=== PATIENT | female | born 1980 | race Caucasian/White ===

== ENCOUNTER 2018-07-15 08:23 | Emergency (ER) | payer MEDICAID ==
[~2018-07-15] VITALS: Ht 167.6 cm; Wt 70.1 kg
[2018-07-15 08:32] VITALS: BP 116/56; PULSE 77; RESP 20; Ht 167.6 cm; Wt 70.1 kg
--- NOTE | 2018-07-15 11:08 | ERD ---
ER Documentation Chief Complaint Chief Complaint Complains of vag bleed and HPI 38-year-old female presenting with complaints of vaginal bleeding. Patient is approximately 11 weeks . being seen by Dr. Marcy Hendrix at [facility]. Patient has no clots but has some mild pressure within the vaginal region. Medical history denies. NKDA. Surgical history is hernia repair years ago. Social history denies ROS All systems reviewed and are negative except as per history of present illness. PMhx/Soc Medical and Surgical Hx: pt denies Medical Hx, pt denies Surgical Hx Hx Alcohol Use: No Hx Substance Use: No Hx Tobacco Use: No Smoking Status: Never smoker FmHx Family History: No diabetes, No coronary disease, No other Physical Exam Vitals Vital Signs Date Temp Pulse Resp B/P (MAP) Pulse Ox O2 O2 Flow FiO2 Time Delivery Rate 07/15/18 98.6 77 20 116/56 100 08:32 (76) Physical Exam GENERAL: The patient is well-appearing, well-nourished, in no acute distress HEENT: Atraumatic. Conjunctivae are pink. Pupils equal, round, and reactive to light. There is no scleral icterus. Tympanic membranes clear bilaterally. Oropharynx clear. No nystagmus or photophobia. CHEST: Clear to auscultation bilaterally. There are no rales, wheezes or rhonchi. HEART: Regular rate and rhythm. No murmurs, clicks, rubs or gallops. ABDOMEN:Soft, nontender and nondistended. Good bowel sounds. No rebound or guarding. No gross peritonitis. No gross organomegaly or masses. No Kelly sign or McBurney point tenderness. Result Diagram: 07/15/18 0912 Results 24 hrs Laboratory Tests Test 07/15/18 09:11 07/15/18 09:12 Urine Color YELLOW Urine Clarity SLIGHTLY CLOUDY Urine pH 5.0 Urine Specific Shiloh 1.015 Urine Ketones NEGATIVE mg/dL Urine Nitrite NEGATIVE mg/dL Urine Bilirubin NEGATIVE mg/dL Urine Urobilinogen NEGATIVE mg/dL Urine Leukocyte Esterase NEGATIVE Jaquelin/ul Urine Microscopic RBC 2 /HPF Urine Microscopic WBC 3 /HPF Urine Squamous Epithelial Cells FEW /HPF Urine Bacteria FEW /HPF Urine Hemoglobin 3+ mg/dL Urine Glucose NEGATIVE mg/dL Urine Total Protein NEGATIVE mg/dl White Blood Count 6.3 10^3/ul Red Blood Count 4.33 10^6/ul Hemoglobin 12.3 g/dl Hematocrit 38.5 % Mean Corpuscular Volume 88.9 fl Mean Corpuscular Hemoglobin 28.4 pg Mean Corpuscular Hemoglobin Concent 31.9 g/dl Red Cell Distribution Width 13.6 % Platelet Count 293 10^3/UL Mean Platelet Volume 10.1 fl Immature Granulocytes % 0.300 % Neutrophils % 63.4 % Lymphocytes % 27.8 % Monocytes % 5.2 % Eosinophils % 2.5 % Basophils % 0.8 % Nucleated Red Blood Cells % 0.0 /100WBC Immature Granulocytes # 0.020 10^3/ul Neutrophils # 4.0 10^3/ul Lymphocytes # 1.8 10^3/ul Monocytes # 0.3 10^3/ul Eosinophils # 0.2 10^3/ul Basophils # 0.1 10^3/ul Nucleated Red Blood Cells # 0.0 10^3/ul Beta HCG, Quantitative 10854.0 mIU/ml Procedures/MDM DIAGNOSTIC IMAGING REPORT Patient: ZACK HAY : 1980 Age: 38 Sex: F MR #: [id number] DOS: 07/15/18 0854 Ordering MD: CECY ANDRES PA-C Location: [facility] Room/Bed: PROCEDURE: OB Ultrasound. CLINICAL INDICATION: Positive test. Vaginal bleeding. TECHNIQUE: Ultrasound of the pelvis was performed with transabdominal and transvaginal sonography in the axial and sagittal planes. COMPARISON: No prior study is available for comparison. FINDINGS: There is a single irregular intrauterine gestational sac. Yolk sac and pole are not visualized. Mean sac diameter is 1.61 cm. There is a small subchorionic hemorrhage. Menstrual age by ultrasound dates is 6 weeks 2 days. This indicates an expected date of delivery of 03/08/2019. The right ovary appears normal measuring 4.0 x 2.0 x 2.8 cm. The left ovary appears normal measuring 3.0 x 1.5 x 2.2 cm. Color Doppler and pulsed Doppler sonography demonstrate normal flow to the ovaries. There is no other pelvic mass or free fluid. IMPRESSION: 1. Single irregular intrauterine gestational sac with no pole or yolk sac present. This may indicate early failed . However, due to the small size, follow-up ultrasound in 14 days is advised. 2. Small subchorionic hemorrhage. 3. Otherwise unremarkable study. MDM: 38-year-old female presenting with eating. Patient had a regular findings noted on ultrasound with elevated hCG. I called Dr. Hendrix and he will see patient in clinic today. I have low suspicion for ectopic . I have low suspicion for hemodynamic instability. Patient's urine is normal. Patient does not require RhoGam is Rh is positive. Patient is discharged and told to go to clinic today. Patient is discharged stricter precautions. Patient stable at the time of departure Departure Diagnosis: Primary Impression: Threatened Condition: Stable Patient Instructions: Miscarriage (Incomplete) Additional Instructions: FOLLOW UP WITH YOUR PRIMARY CARE PHYSICIAN TOMORROW.Return to this facility if you are not improving as expected. IRINA ANDRES PA-C Jul 15, 2018 11:08
== END 2018-07-15 10:47 | disposition home or self-care (01) ==
LOC: FTE 08:23
DX: O20.0 Threatened abortion (principal); Z3A.11 11 weeks gestation of pregnancy
CPT/HCPCS: 36415; 76801; 76817; 81001; 84702; 85025; 86900; 86901; Z7502

== ENCOUNTER 2018-10-09 16:32 | Emergency (ER) | payer MEDICAID ==
[~2018-10-09] VITALS: Ht 162.6 cm; Wt 78.0 kg
[2018-10-09 16:51] VITALS: Ht 162.6 cm; Wt 78.0 kg
[2018-10-09] MEDS ORDERED: ONDANSETRON 4 MG INJ IV STA (17:11)
[2018-10-09] MEDS ORDERED: SOD CHLORIDE 0.9% 1,000 ML IV STA (17:11)
[2018-10-09] MEDS ORDERED: ACETAMINOPHEN 325 MG TAB PO STA (17:11)
--- NOTE | 2018-10-09 17:20 | ERD ---
ER Documentation Chief Complaint Chief Complaint vomiting for days; 8 weeks HPI 38-year-old woman who is 8 weeks by dates and previously normal ultrasound presents with daily nausea times 1 week, she states she has had intermittent clear emesis as well about 2 episodes over this entire week. She states she has malodorous urine for a couple days but denies back or flank pain, no vaginal bleeding or vaginal discharge, no chest pain or shortness of breath, no cough or URI symptoms. ROS All systems reviewed and are negative except as per history of present illness. Medications Home Meds Active Scripts Ondansetron Hcl* (Zofran*) 4 Mg Tablet, 4 MG PO Q8H PRN for NAUSEA AND/OR VOMITING, #30 TAB Prov:MINA SERRANO MD 10/09/18 Nitrofurantoin Macrocrystal* (Nitrofurantoin Macrocrystal*) 100 Mg Capsule, 100 MG PO BID, #14 CAP Prov:MINA SERRANO MD 10/09/18 Allergies Allergies: Coded Allergies: No Known Allergy (Unverified , 10/09/18) PMhx/Soc Hx Alcohol Use: No Hx Substance Use: No Hx Tobacco Use: No FmHx Family History: No diabetes Physical Exam Vitals Vital Signs Date Temp Pulse Resp B/P (MAP) Pulse Ox O2 O2 Flow FiO2 Time Delivery Rate 10/09/18 97.8 72 20 120/71 100 16:51 (87) Physical Exam GENERAL: Well-developed, well-nourished, well-hydrated, in no apparent distress, looks nontoxic in appearance HEENT: Moist mucous membranes, pink conjunctiva, no cervical spine tenderness or step-off deformities, no goiter, no jaundice or icterus, extraocular movements intact without pain. No submandibular induration, and no pharyngeal erythema NEURO: Alert and oriented 3, cranial nerves II through XII intact bilaterally, pupils equal round reactive to light, no focal deficits or facial asymmetry, sensation intact distally Strength 5/5 in upper and lower extremities bilaterally CARDIAC: Regular rate and rhythm, no murmurs rubs or gallops LUNGS: Clear bilaterally no wheezing crackles or stridor ABDOMEN: Soft nontender, no guarding, no rigidity, no rebound, no psoas sign no obturator sign. Normoactive bowel sounds SKIN: Warm and dry to touch, no abrasions, contusions, or hematomas, no lacerations, no ecchymosis, no target lesions, and without ulcers EXTREMITIES: No clubbing cyanosis or edema, calves are bilaterally symmetrical, no Homans sign, no popliteal cord sign. Distal pulses equal and bilateral PSYCH: Normal affect without agitation or irritability Result Diagram: 10/09/18 17410/09/18 174 Results 24 hrs Laboratory Tests Test 10/09/18 17:38 10/09/18 17:42 Urine Color YELLOW Urine Clarity CLOUDY Urine pH 5.0 Urine Specific Rinard 1.027 Urine Ketones 1+ mg/dL Urine Nitrite POSITIVE mg/dL Urine Bilirubin NEGATIVE mg/dL Urine Urobilinogen NEGATIVE mg/dL Urine Leukocyte Esterase TRACE Jaquelin/ul Urine Microscopic RBC 3 /HPF Urine Microscopic WBC 6 /HPF Urine Squamous Epithelial Cells MODERATE /HPF Urine Bacteria MANY /HPF Urine Mucus MANY /HPF Urine Hemoglobin NEGATIVE mg/dL Urine Glucose NEGATIVE mg/dL Urine Total Protein NEGATIVE mg/dl White Blood Count 9.5 10^3/ul Red Blood Count 4.20 10^6/ul Hemoglobin 11.8 g/dl Hematocrit 36.4 % Mean Corpuscular Volume 86.7 fl Mean Corpuscular Hemoglobin 28.1 pg Mean Corpuscular Hemoglobin Concent 32.4 g/dl Red Cell Distribution Width 13.2 % Platelet Count 320 10^3/UL Mean Platelet Volume 10.2 fl Immature Granulocytes % 0.300 % Neutrophils % 68.4 % Lymphocytes % 23.7 % Monocytes % 6.0 % Eosinophils % 1.1 % Basophils % 0.5 % Nucleated Red Blood Cells % 0.0 /100WBC Immature Granulocytes # 0.030 10^3/ul Neutrophils # 6.5 10^3/ul Lymphocytes # 2.3 10^3/ul Monocytes # 0.6 10^3/ul Eosinophils # 0.1 10^3/ul Basophils # 0.1 10^3/ul Nucleated Red Blood Cells # 0.0 10^3/ul Sodium Level 139 mmol/L Potassium Level 4.1 mmol/L Chloride Level 108 mmol/L Carbon Dioxide Level 23 mmol/L Anion Gap 8 Blood Urea Nitrogen 13 mg/dl Creatinine 0.51 mg/dl Est Glomerular Filtrat Rate mL/min > 60 mL/min Glucose Level 83 mg/dl Calcium Level 9.0 mg/dl Total Bilirubin 0.4 mg/dl Direct Bilirubin 0.00 mg/dl Indirect Bilirubin 0.4 mg/dl Aspartate Amino Transf (AST/SGOT) 24 IU/L Alanine Aminotransferase (ALT/SGPT) 36 IU/L Alkaline Phosphatase 40 IU/L Total Protein 7.0 g/dl Albumin 4.0 g/dl Globulin 3.00 g/dl Albumin/Globulin Ratio 1.33 Current Medications Medications Dose Sig/Yumiok Start Time Status Last (Trade) Ordered Route PRN Stop Time Admin Dose Reason Admin Sodium 1,000 ml @ Q1H STAT 10/09/18 DC 10/09/18 Chloride 1,000 mls/hr IV 17:11 17:49 10/09/18 18:10 650 mg ONCE STAT 10/09/18 DC 10/09/18 Acetaminophen PO 17:11 17:49 (Tylenol 10/09/18 17:13 Tab) Ondansetron 4 mg ONCE STAT 10/09/18 DC 10/09/18 HCl (Zofran IV 17:11 17:49 Inj) 10/09/18 17:13 Ceftriaxone 50 ml @ ONCE ONCE 10/09/18 10/09/18 Sodium 100 mls/hr IVPB 18:30 18:26 10/09/18 18:59 Procedures/MDM IV line was established patient was placed on consultant electronics rhythm strip revealed a sinus rhythm at about 80 bpm with upright P and T waves. Patient was afebrile I administered 1 L normal saline IV, acetaminophen, and Zofran 4 mg IV. CBC and electrolytes are normal, liver function tests were normal, test positive, urinalysis positive for infection. I administered ceftriaxone 1 g IV. Return precaution instructions and outpatient management instructions were pro vided to the patient and her who was at the bedside using a Syriac- speaking spindle plumber. They agreed to plan and understood instructions, she will follow-up with her functional director for continued medical management, but I did give her a prescription for nitrofurantoin twice daily times 1 week as well as Zofran. Differential diagnoses considered, included but not limited to cervicitis, pelv ic inflammatory disease, ectopic , missed , miscarriage, pneumonia, appendicitis, cholecystitis, bowel obstruction, pyelonephritis, nephrolithiasis, cystitis, as well as metabolic, hematologic, and electrolyte abnormalities. As well as abscess, cellulitis, fractures, and dislocations. Patient feels much better at this time, and vital signs are normal, symptoms have improved. I did give strict instructions to return to the ED if symptoms continue or worsen, patient will otherwise follow-up with primary care physician. Patient understood instructions and agreed to plan. Disclaimer: Inadvertent spelling and grammatical errors are likely due to EHR/dictation software use and do not reflect on the overall quality of patient care. Also, please note that the electronic time recorded on this note does not necessarily reflect the actual time of the patient encounter. Departure Diagnosis: Primary Impression: Vomiting Vomiting type: unspecified Vomiting Intractability: non-intractable Nausea presence: with nausea Qualified Codes: R11.2 - Nausea with vomiting, unspecified Additional Impressions: First trimester Acute UTI Condition: Good MINA SERRANO MD Oct 09, 2018 17:20
[2018-10-09] MEDS ORDERED: CEFTRIAXONE 1 GM/50 ML (PMX) 50 ML IVPB ONE (18:30)
[2018-10-09] MEDS ORDERED: NITR100C7 PO (18:53)
[2018-10-09] MEDS ORDERED: ONDA4TAB8 PO (18:53)
[2018-10-09 19:00] VITALS: BP 125/75; PULSE 88; RESP 20
== END 2018-10-09 19:20 | disposition home or self-care (01) ==
LOC: FTE 16:32
DX: O21.9 Vomiting of pregnancy, unspecified (principal); O23.41 Unspecified infection of urinary tract in pregnancy, first trimester; Z3A.08 8 weeks gestation of pregnancy
CPT/HCPCS: 36415; 80053; 81001; 84702; 85025; 86900; 86901; 87086; 96374; 96375; J0696; J2405; J7030; Z7502; Z7610

== ENCOUNTER 2019-01-16 10:47 | Inpatient (IN) | payer MEDICAID ==
[~2019-01-16] VITALS: Ht 152.4 cm; Wt 75.1 kg
[~2019-01-16 10:47] MED LIST: NITR100C7 PO; ONDA4TAB8 PO
[2019-01-16 11:01] VITALS: Ht 152.4 cm; Wt 75.1 kg
[2019-01-16 11:02] VITALS: BP 116/62; PULSE 74; RESP 19
--- NOTE | 2019-01-16 11:12 | TRIAGE ---
OB Triage Datetime Report Generated by CPN: 01/16/2019 11:12 Datetime: 01/16/2019 11:11 Assessment Type: Triage Maternal Assessment Level of Consciousness: Keenly Alert, Responsive DTR's/Clonus: DTRs 2+; No Clonus Headache: Denies Blurred Vision: No Respiratory Effort: Unlabored; Regular Rhythm; Equal Expansion Breath Sounds, Left: Clear and Equal Breath Sounds, Right: Clear and Equal Nausea/Vomiting: Denies RUQ Epigastric Pain: Denies Lower Extremities Edema: None Degree: None Upper Extremities Edema: None Degree: None Facial Edema: None Fall Risk Assessment History of Falling: (0) No Secondary Diagnosis: (0) No Ambulatory Aid: (0) Bedrest/Nurse Assist IV Therapy: (0) No Gait: (0) Normal/Bedrest/Immobile Mental Status: (0) Oriented to Own Ability Fall Score: 0 Fall Risk Score Definition: No Risk: No action required Datetime: 01/16/2019 11:09 Time of Arrival: 01/16/2019 10:30 EGA: 22.1 Arrived By: Ambulatory Arrived From: Other Unit in Hospital Chief Complaint: PTL Movement: Present Contractions: Denies/Absent Rupture of Membranes: Unsure Vaginal Bleeding: None Vaginal Discharge: Present Recent Sexual Intercouse: Denies Abdominal Trauma: Not Applicable Patient Complaints: Other Time Provider Notified: 01/16/2019 11:00 Provider Notified: DR STEWART Initial Plan: NST VE AND ROM+ Datetime: 01/16/2019 10:55 Vaginal Exam Dilatation (cms): 7.0 Effacement (%): 100 Station: -2 Exam By: Jose RUELAS
[2019-01-16] MEDS ORDERED: MAGNESIUM SULFATE 4 GM/100 ML 100 ML ONE (11:18)
[2019-01-16] MEDS ORDERED: AMPICILLIN 2 GM/NS (PMX) 100 ML IV ONE (11:30)
[2019-01-16] MEDS ORDERED: MAGNESIUM SULFATE 4 GM/100 ML 100 ML IV ONE (11:30)
[2019-01-16] MEDS: LACTATED RINGER'S 1,000 ML IV SCH ×2 (11:41→19:32)
[2019-01-16] MEDS: BETAMET NA PHOS/AC(6 MG/ML) 2 ML INJ SYG IM SCH (11:41)
[2019-01-16] MEDS: MAGNESIUM SULFATE 20 GM/500 ML 500 ML IV SCH ×2 (11:53→22:08)
[2019-01-16] MEDS ORDERED: AZITHROMYCIN 500 MG in SOD CHLORIDE 0.9% 250 ML IVPB ONE (14:30)
--- NOTE | 2019-01-16 15:57 | QN ---
Documentation Comment Neonatology consult Consult at the request of Dr. Hendrix Korin Waldrop is a 38-year-old 5 para 2 mother presently at 21 and 6/7 weeks of gestation. The estimated weight is less than 500 g. Mother is receiving steroids, magnesium sulfate tocolyse is and antibiotics. She is already dilated to 7-8 cm and has rupture of membranes. Unfortunately at 21 and 6/7 weeks of gestation this is a previable fetus and at the time at this time we do not have interventions to care for infants this small nor any success rate and their ultimate survivability. I spoke to the parents regarding the need to have at least 2 more weeks of growth with reaccumulation of the amniotic fluid in order for the infant to be of a possible viability that interventions with pulmonary support cardiac support antibiotics in the standard care and NICU could have a possible survivability. I did discuss that most infants born at around 23+ weeks of gestation generally have morbidities if they do survive and her survive ability is probably less than 25%. I also discussed other possibilities notes the reaches another 4 weeks and that we would do further consultation at that point described the infant's care. Thank you for this consult and we will be available for reconsultation should the continue GOPAL YOUSIF MD Jan 16, 2019 15:57
[2019-01-16] MEDS: AMPICILLIN 1 GM/NS (PMX) 50 ML IV SCH ×2 (18:10→22:06)
[2019-01-17] MEDS: AMPICILLIN 1 GM/NS (PMX) 50 ML IV SCH ×6 (02:12→22:07)
[2019-01-17] MEDS: LACTATED RINGER'S 1,000 ML IV SCH ×3 (06:05→22:09)
--- NOTE | 2019-01-17 07:10 | HP ---
Date/Time of Note Date/Time of Note DATE: 01/17/19 TIME: 07:08 OB - History Hx of Present Free Text/Dictation at 22 weeks sent from perinatology due to open cervix. Care: Good Care Ultrasounds: Normal mid trimester US Obstetrical Complications: None Medical Complications: None Past Family/Social History * Past Medical, Surgical, Family and Obstetric Histories reviewed from chart. OB Admission Exam Vital Signs Vital Signs Vital Signs Date Temp Pulse Resp B/P (MAP) Pulse Ox O2 O2 Flow FiO2 Time Delivery Rate 01/16/19 97.6 74 19 116/62 Room Air 11:02 (80) Physical Exam HEENT: WNL Heart: Rhythm Normal Lungs: Clear, Equal Abdomen: WNL Extremities: Normal Reflexes: Normal Cervical Dilatation: 7cm Effacement: 100% Station: -1 Membranes: Intact Heart Rate: 130's Accelerations: Accelerations Present Decelerations: No Decelerations Contractions on Admission: None Last 72 hours Lab Results CBC & BMP 01/16/19 11:30 Liver Function Test 01/16/19 11:30 Alanine Aminotransferase (ALT/SGPT) 32 Albumin 3.6 Alkaline Phosphatase 61 Aspartate Amino Transf (AST/SGOT) 25 Direct Bilirubin 0.00 Total Protein 6.5 Magnesium Level Test 01/16/19 17:22 01/17/19 00:13 Magnesium Level 4.8 H 5.8 *H OB Assessment/Plan Reason for admission: IUP - Plan: Other (magnesium, beta methasone, ampicillin, azithromycin) OLEG SILVA MD Jan 17, 2019 07:10
[2019-01-17] MEDS: MAGNESIUM SULFATE 20 GM/500 ML 500 ML IV SCH ×2 (08:19→18:52)
[2019-01-17] MEDS: BETAMET NA PHOS/AC(6 MG/ML) 2 ML INJ SYG IM SCH (11:29)
[2019-01-17] MEDS: AZITHROMYCIN 250 MG in SOD CHLORIDE 0.9% 250 ML IVPB SCH (14:34)
[2019-01-18] MEDS: AMPICILLIN 1 GM/NS (PMX) 50 ML IV SCH ×6 (01:57→21:07)
[2019-01-18] MEDS: LACTATED RINGER'S 1,000 ML IV SCH ×3 (05:33→21:07)
[2019-01-18] MEDS: MAGNESIUM SULFATE 20 GM/500 ML 500 ML IV SCH ×2 (05:38→15:17)
[2019-01-18] MEDS: AZITHROMYCIN 250 MG in SOD CHLORIDE 0.9% 250 ML IVPB SCH (15:22)
[2019-01-19] MEDS: AMPICILLIN 1 GM/NS (PMX) 50 ML IV SCH ×7 (00:59→23:41)
[2019-01-19] MEDS: MAGNESIUM SULFATE 20 GM/500 ML 500 ML IV SCH (01:03)
[2019-01-19] MEDS: LACTATED RINGER'S 1,000 ML IV SCH ×2 (04:38→10:08)
--- NOTE | 2019-01-19 09:59 | QN ---
Documentation Comment pt. had vag bleeding. exam shows 8cm. 100%, flooding FHR present u/s shows vertex explained to pt that we allow vaginal delivery and then weigh the baby to determine if any intervention. OLEG SILVA MD Jan 19, 2019 09:59
[2019-01-19] MEDS: AZITHROMYCIN 250 MG in SOD CHLORIDE 0.9% 250 ML IVPB SCH (14:13)
[2019-01-19] MEDS ORDERED: AL HYDROX/MG HYDROX/SIMETH 30 ML CUP PO PRN (20:00)
[2019-01-20] MEDS: AMPICILLIN 1 GM/NS (PMX) 50 ML IV SCH ×2 (03:42→07:59)
[2019-01-20] MEDS ORDERED: OXYTOCIN 30 UNITS/LR 500 ML IV ONE (08:45)
[2019-01-20] MEDS ORDERED: OXYTOCIN 30 UNITS/LR 500 ML IV SCH ×3 (09:00→12:01)
[2019-01-20] MEDS ORDERED: BUTORPHANOL 2 MG INJ IV PRN (09:30)
[2019-01-20] MEDS ORDERED: IBUPROFEN 600 MG TAB PO PRN (09:30)
--- NOTE | 2019-01-20 09:31 | LDN ---
Date/Time of Note Date/Time of Note DATE: 01/20/19 TIME: 09:30 Delivery Summary 22 WEEKS DELIVERED AFTER PPROM Placenta Delivered: Spontaneously Meconium: none Episiotomy: No Anesthesia type: None Estimated blood loss: 300 Sponge & Needle done & correct: Yes All needle counts correct: Yes Any foreign bodies felt in the: No OLEG SILVA MD Jan 20, 2019 09:31
--- NOTE | 2019-01-20 09:32 | DS ---
Date/Time of Note Date/Time of Note DATE: 01/20/19 TIME: 09:31 Discharge Summary Admission/Discharge Info Admit Date/Time Jan 16, 2019 at 11:00 Discharge Date/Time Discharge Diagnosis 22 WEEKS WITH PTL AND PTD Patient Condition: Stable Procedures VAGNIAL DELIVERY Hospital Course UNREMAKABLE Home Meds Active Scripts Ondansetron Hcl* (Zofran*) 4 Mg Tablet, 4 MG PO Q8H PRN for NAUSEA AND/OR VOMITING, #30 TAB Prov:IMNA SERRANO MD 10/09/18 Nitrofurantoin Macrocrystal* (Nitrofurantoin Macrocrystal*) 100 Mg Capsule, 100 MG PO BID, #14 CAP Prov:MINA SERRANO MD 10/09/18 Primary Care Provider Care Physician No Primary OLEG SILVA MD Jan 20, 2019 09:32
[2019-01-20] MEDS: LACTATED RINGER'S 1,000 ML IV* SCH ×2 (12:01→20:01)
[2019-01-20 12:20] VITALS: BP 127/75; PULSE 73; RESP 20
[2019-01-20] MEDS ORDERED: OXYTOCIN 30 UNITS/LR 500 ML IV PRN (12:30)
[2019-01-20] MEDS ORDERED: HYDROCODONE/APAP (5/325) TAB PO PRN (12:30)
[2019-01-20] MEDS ORDERED: BENZOCAINE 20% 56 ML SPRAY TOP PRN (12:30)
[2019-01-20] MEDS ORDERED: WITCH HAZEL/GLYCERIN PAD PR PRN (12:30)
[2019-01-20] MEDS ORDERED: DIPHENHYDRAMINE 25 MG CAP PO PRN (12:30)
[2019-01-20] MEDS ORDERED: LANOLIN HPA 1 PKT TOP PRN (12:30)
[2019-01-20] MEDS ORDERED: ACETAMINOPHEN 325 MG TAB PO PRN (12:30)
[2019-01-20] MEDS ORDERED: SENNA/DOCUSATE NA (8.6MG/50MG) TAB PO PRN (12:30)
[2019-01-20] MEDS ORDERED: MAGNESIUM HYDROXIDE 30ML CUP PO PRN (12:30)
[2019-01-20] MEDS ORDERED: MISOPROSTOL 200 MCG TAB PR PRN (12:30)
[2019-01-20] MEDS ORDERED: ZOLPIDEM 5 MG TAB PO PRN (12:30)
[2019-01-20] MEDS ORDERED: METHYLERGONOVINE 0.2 MG INJ IM PRN (12:30)
[2019-01-20] MEDS ORDERED: CARBOPROST 250 MCG INJ IM PRN (12:30)
[2019-01-20 13:00] VITALS: BP 121/68; PULSE 20; RESP 20
[2019-01-20 16:00] VITALS: BP 106/58; PULSE 72; RESP 18
[2019-01-20] MEDS: IBUPROFEN 800 MG TAB PO SCH (18:10)
[2019-01-20 19:30] VITALS: BP 132/79; PULSE 69; RESP 18
[2019-01-21] MEDS: IBUPROFEN 800 MG TAB PO SCH ×3 (00:04→11:36)
[2019-01-21] MEDS: LACTATED RINGER'S 1,000 ML IV* SCH ×2 (04:01→12:01)
[2019-01-21 04:10] VITALS: BP 110/60; PULSE 63; RESP 18
[2019-01-21 08:00] VITALS: BP_SYST 113; BP_SYST 121; BP_DIAS 64; BP_DIAS 70; PULSE 61; PULSE 63; RESP 18
[2019-01-22] MEDS ORDERED: VARICELLA VACCINE LIVE/PF 1,350 UNIT/0.5 ML ML SC* ONE (09:00)
[2019-01-22] MEDS ORDERED: MEASLES,MUMPS,RUBELLA VACCINE INJ SC* ONE (09:00)
[2019-01-22] MEDS ORDERED: DIPHTH/TET/ACEL PERTUSS (ADULT) 0.5 ML VIAL IM* ONE (09:00)
--- NOTE | 2019-01-22 18:16 | DELSUM ---
Delivery Summary A-C Datetime Report Generated by CPN: 01/22/2019 18:16 DELIVERY PERSONNEL Electric Meter Repairer Helper: Eulogio, Rosie MATERNAL INFORMATION Delivery Anesthesia: None Medications in Delivery: Pitocin Delivery QBL (ml): 300 Placenta Cultured: No Maternal Complications: None Other Maternal Complications: labor LABOR SUMMARY EDC: 05/23/2019 00:00 No. Babies in Womb: 1 Attempted: No Labor Anesthesia: None LABOR INFORMATION Reason for Induction: Not Applicable Group B Beta Strep: Not Done Antibiotics Time of Last Dose: 01/20/2019 08:00 Steroids Given: Full Course Reason Steroids Not Administered: Indication; Imminent Delivery MEMBRANES Membranes Rupture Method: Spontaneous Rupture of Membranes: 01/20/2019 02:50 Length of Rupture (hr): 6.20 Amniotic Fluid Color: Clear Amniotic Fluid Amount: Moderate Amniotic Fluid Odor: None STAGES OF LABOR Stage 3 hr: 0 Stage 3 min: 2 VAGINAL DELIVERY Episiotomy: None Laceration Extension: N/A Laceration Type: None Initial Vag Sponge Count: 10 Final Vag Sponge Count: 10 Initial Vag Sharps Count: 2 Final Vag Sharps Count: 2 Sponge Count Correct: Yes; Vaginal Sweep Performed Sharps Count Correct: Yes BABY A INFORMATION Delivery Date/Time: 01/20/2019 09:02 Method of Delivery: Vaginal Born in Route : No : N/A Forceps: N/A Vacuum Extraction: N/A Shoulder Dystocia : N/A SHOULDER DYSTOCIA BABY A Infant Delivery Date/Time: 01/20/2019 09:02 PRESENTATION/POSITION BABY A Presentation: Cephalic Cephalic Presentation: Vertex Vertex Position: Left Occipital Anterior Breech Presentation: N/A PLACENTA INFORMATION BABY A Placenta Delivery Time : 01/20/2019 09:04 Placenta Method of Delivery: Spontaneous Placenta Status: Delivered SCORES BABY A Heart Rate 1 min: >100 bpm Resp Effort 1 min: Slow, Irregular Reflex Irritability 1 min: Grimace Muscle Tone 1 min: Some Flexion of Extrem Color 1 min: Blue/Pale Resuscitation Effort 1 min: Tactile Stimulation; Oxygen; PPV/NCPAP SCORE 1 MIN: 5 Heart Rate 5 min: >100 bpm Resp Effort 5 min: Slow, Irregular Reflex Irritability 5 min: Grimace Muscle Tone 5 min: Some Flexion of Extrem Color 5 min: Blue/Pale SCORE 5 MIN: 5 INFANT INFORMATION BABY A Gestational Age at Delivery: 22.3 Gestational Status: - <34 Weeks Outcome : Liveborn, with signs of life Infant Condition : Critical Sex: Male IDENTIFICATION/MEDS BABY A ID Band Number: [id number] ID Band Location: Right Leg; Left Arm Sensor Applied: No Sensor Number: [id number] Vitamin K Given : Not Given Erythromycin Given: Not Given WEIGHT/LENGTH BABY A Infant Birthweight (gm): 490 Weight (lb): 1 Weight (oz): 1 ASSESSMENT BABY A Computer Applications Engineer/ALS Called : Yes Infant Care By: BECKY Ornelas Transferred To: NICU
== END 2019-01-21 18:16 | disposition home or self-care (01) | DRG 807 ==
LOC: OBT 10:47 → L-D 10:47 → OBT 11:00 → L-D 19:40 → PP1 01-20 12:29
PROVIDERS: ADMIT Obstetrics & Gynecology; ATTEND Obstetrics & Gynecology
PROC: 10E0XZZ Delivery of Products of Conception, External Approach (ICD-10-PCS; principal; 2019-01-20)
DX: O42.012 Preterm premature rupture of membranes, onset of labor within 24 hours of rupture, second trimester (principal); Z37.0 Single live birth; Z3A.22 22 weeks gestation of pregnancy; Z23 Encounter for immunization
CPT/HCPCS: 76811; 76815; 80053; 81001; 83735; 84112; 85025; 85610; 85730; 86592; 86900; 86901; 87086; 87340; 88307; 99464; G0463; J0290; J0456; J0595; J0702; J2590; J3475; J7050; J7120